=== PATIENT | male | born 1980 | race Caucasian/White ===

== ENCOUNTER 2017-11-02 10:55 | Emergency (ER) | payer OTHER ==
[~2017-11-02] VITALS: Ht 167.6 cm; Wt 81.6 kg
[2017-11-02 11:01] VITALS: BP 80/36
[2017-11-02] MEDS ORDERED: KETOROLAC 30 MG/ML VIAL IVP ONE (11:20)
[2017-11-02] MEDS ORDERED: NEOMYCIN/POLYMYXIN/BACITRACIN 0.9 GM/1 PKT TP ONE (11:20)
[2017-11-02] MEDS ORDERED: LIDOCAINE 1% 500 MG/50 ML VIAL INJ ONE (11:20)
[2017-11-02 11:42] LABS: BASOPHILS # (AUTO) 0.1 K/uL (0.00-0.22); BASOPHILS % (AUTO) 0.8 % (0.0-2.0); EOSINOPHILS # (AUTO) 0.3 K/uL (0-0.4); HEMATOCRIT 41.5 % (36-52); HEMOGLOBIN 13.8 g/dL (12.0-18.0); LYMPHOCYTES # (AUTO) 2.1 K/uL (2.0-11.5); LYMPHOCYTES % (AUTO) 20.4 % (20.5-51.1); MEAN CORPUSCULAR HEMOGLOBIN 29 pg (27-31); MEAN CORPUSCULAR HGB CONC 33 g/dL (33-37); MEAN CORPUSCULAR VOLUME 87.5 fL (80-94); MONOCYTES # (AUTO) 0.9 K/uL (0.8-1.0); MONOCYTES % (AUTO) 8.5 % (1.7-9.3); NEUTROPHILS # (AUTO) 6.8 K/uL (1.8-7.7); NEUTROPHILS % (AUTO) 67.3 % (42.2-75.2); PLATELET COUNT (AUTO) 208 K/uL (140-450); RED BLOOD CELL COUNT(AUTO) 4.74 MIL/uL (4.20-6.10); RED CELL DISTRIBUTION WIDTH 13.1 % (11.6-13.7); WHITE BLOOD COUNT (AUTO) 10.1 K/uL (4.8-10.8)
[2017-11-02 12:41] LABS: CARBON DIOXIDE 26.5 mmol/L (21-32); CREATININE 0.8 mg/dL (0.7-1.3); POTASSIUM 3.5 mmol/L (3.5-5.1)
[2017-11-02 12:48] LABS: ALBUMIN 3.3 g/dL (3.4-5.0); PROTHROMBIN TIME 11.4 secs (10.8-13.4); TOTAL BILIRUBIN 0.5 mg/dL (0.0-1.0)
[2017-11-02 15:49] VITALS: BP 117/83
== END 2017-11-02 15:49 | disposition home or self-care (01) ==
LOC: MED 10:55
DX: S41.112A Laceration without foreign body of left upper arm, initial encounter (principal); S61.412A Laceration without foreign body of left hand, initial encounter; F17.210 Nicotine dependence, cigarettes, uncomplicated; W45.8XXA Other foreign body or object entering through skin, initial encounter; Y93.89 Activity, other specified; Y99.8 Other external cause status; Y92.89 Other specified places as the place of occurrence of the external cause
CPT/HCPCS: 12002; 36415; 71045; 73060; 73130; 80053; 85025; 85610; 85730; 90471; 90715; 96374; 99285; J1885; J2001

== ENCOUNTER 2017-11-25 23:40 | Emergency (ER) | payer OTHER ==
[~2017-11-25] VITALS: Ht 167.6 cm; Wt 85.0 kg
[2017-11-25 23:54] VITALS: BP 132/80
--- NOTE | 2017-11-25 23:58 | NUR ---
PT AMBULATED TO BED 2
--- NOTE | 2017-11-26 00:03 | NUR ---
37 Y/O M FOR F/U ON STAPLE AND SUTURE REMOVEL FROM LEFT HAND AND LEFT BICEP. NO S/S OF INFECTION NOTED. PT DENIES ANY PAIN. ER MADE AWARE.
[2017-11-26] MEDS ORDERED: BACITRACIN OINT 500 UNITS/GM PKT TP ONE (00:25)
[2017-11-26 00:38] VITALS: BP 132/80
== END 2017-11-26 00:38 | disposition home or self-care (01) ==
LOC: MED 23:40
DX: S41.112D Laceration without foreign body of left upper arm, subsequent encounter (principal); S61.412D Laceration without foreign body of left hand, subsequent encounter; Z48.02 Encounter for removal of sutures; X58.XXXD Exposure to other specified factors, subsequent encounter
CPT/HCPCS: 99283

== ENCOUNTER 2023-09-18 00:35 | Emergency (ER) | payer OTHER ==
[~2023-09-18] VITALS: Ht 167.6 cm; Wt 95.3 kg
[2023-09-18 00:40] VITALS: BP 134/70; PULSE 120; RESP 17; TEMP 98; O2SAT 97
[2023-09-18 01:06] VITALS: BP 134/70; PULSE 120; RESP 17; TEMP 98; O2SAT 97
== END 2023-09-18 01:45 | disposition left against medical advice (07) ==
LOC: MED 00:35
DX: R11.10 Vomiting, unspecified (principal); Z53.21 Procedure and treatment not carried out due to patient leaving prior to being seen by health care provider
CPT/HCPCS: 99281